=== PATIENT | female | born 1995 | race Caucasian/White ===

== ENCOUNTER → 2016-11-05 | Outpatient (CLI) | payer OTHER ==
[~2016-11-05] MED LIST: AZIT250T81 PO; PRED20TA PO; TBR.3OP51 OS
[2016-11-05 11:25] VITALS: BP 120/84
--- NOTE | 2016-11-05 11:25 | Urgent Care T Sheet Gen (E) ---
Intake General Temperature (Fahrenheit): 98.3 Pulse: 82 Blood Pressure Systolic: 120 Blood Pressure Diastolic: 84 Respirations: 18 SPO2: 97 Description of Symptoms Patient presents with possible sinus infection. States her nasal congestion, raspy voice and sore throat has been present for a week. This morning the symptoms worsened. She woke up with her L eye matted shut. Notes purulent drainage and grittiness to the eye. No fever. No meds to treat her symptoms. History of Present Illness Home Meds Active Scripts Tobramycin Sulf (Tobrex 0.3% Ophthalmic Solution)5 Ml Soln2 Drops OS QID #1 BTL Instil 2 drops in L eye QID x 7 days. Prov:AYAKA GARRETT 11/05/16 Azithromycin (Zithromax Z-Cristino)6 Tab/Pkt [id number] Mg PO SEE INSTRUCTIONS #6 TAB Ref 0 Day One: Take 2 tablets by mouth Days Two-Five: Take 1 tablet by mouth Prov:AYAKA GARRETT 11/05/16 Prednisone 20 Mg [id number] Mg PO BID #6 TAB Prov:AYAKA GARRETT 08/20/16 Respiratory Constitutional Symptoms: No Fever, Malaise EENTM: Eye tearing Nose Congestion Throat pain Respiratory: No symptoms reported Cardiovascular: No symptoms reported All Other Systems Reviewed Remaining Systems: All other systems reviewed with negative findings Physical Exam Physical Exam General Appearance: WD/WN No apparent distress Eyes, Ears, Nose, Throat Ex: PERRL/EOMI (L conjunctiva is red. purulent drianage is noted. mattering noted in eyelashes.) TMs normal Pharyngeal erythema (cobblestone appearance; PND) Other (red, swollen nasal turbinates with purulent drainage; tender over maxillary sinuses.) Neck Exam: SuppleNo Lymphadenopathy Respiratory Exam: Lungs clear Normal breath sounds Cardiovascular Exam: Regular rate, rhythm Departure Urgent Care Impression Impression: Primary Impression: Sinusitis Qualified Code: J01.00 - Acute maxillary sinusitis, unspecified Additional Impression: Left conjunctivitis Qualified Code: H10.32 - Unspecified acute conjunctivitis, left eye Departure Disposition: HOME OR SELF-CARE Condition: Stable Additional Instructions: Her eye is most likely related to her sinus infection. I have started her on a Z-Pack for treatment of the sinus infection. For dual coverage, I have also started her on Tobramycin ophth drops. warm compress to the eye. Rest. Fluids Return as needed Patient understands DC instructions. All questions were answered. Scripts Tobramycin Sulf (Tobrex 0.3% Ophthalmic Solution)5 Ml Soln2 Drops OS QID #1 BTL Instil 2 drops in L eye QID x 7 days. Prov:AYAKA GARRETT 11/05/16 Azithromycin (Zithromax Z-Cristino)6 Tab/Pkt [id number] Mg PO SEE INSTRUCTIONS #6 TAB Ref 0 Day One: Take 2 tablets by mouth Days Two-Five: Take 1 tablet by mouth Prov:AYAKA GARRETT 11/05/16 End of report . AYAKA GARRETT Nov 05, 2016 10:44
== END ==
LOC: MHUC 10:19
PROVIDERS: ATTEND Physician Assistant
DX: J01.00 Acute maxillary sinusitis, unspecified (principal); H10.32 Unspecified acute conjunctivitis, left eye
CPT/HCPCS: 99213